=== PATIENT | male | born 1985 | race Caucasian/White ===

== ENCOUNTER 2018-01-01 13:55 | Emergency (ER) | payer OTHER ==
[2018-01-01] MEDS ORDERED: KETOROLAC 30 MG/ML INJ ONE (14:47)
[2018-01-01] MEDS ORDERED: DIAZEPAM 10 MG/2 ML INJ SYRINGE ONE (14:49)
--- NOTE | 2018-01-01 15:39 | ER ---
Nurse's Notes [facility] Name: Parish Brand Age: 32 yrs Sex: Male : 1985 Arrival Date: 01/01/2018 Time: 14:00 Bed 15 Private MD: None, None Diagnosis: Low back pain Presentation: 01/01 14:14 Presenting complaint: Patient states: Sudden onset low back pain when bending over last aj night to take out trash. Patient reports numbness that radiates down right leg. Transition of care: patient was not received from another setting of care. Onset of symptoms was January 01, 2018. Risk Assessment: Do you want to hurt yourself or someone else? Patient reports no desire to harm self or others. 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 Care prior to arrival: None. 14:14 Method Of Arrival: Wheelchair aj 14:14 Acuity: EVETTE 4 aj 14:18 Initial Sepsis Screen: Does the patient meet any 2 criteria? No. Patient's initial tw2 sepsis screen is negative. Does the patient have a suspected source of infection? No. Patient's initial sepsis screen is negative. Triage Assessment: 14:15 General: Appears in no apparent distress. uncomfortable, Behavior is calm, cooperative, aj appropriate for age. Pain: Complains of pain in low back area, coccyx, right lower back, right gluteus sherita and right gluteal fold Pain currently is 7 out of 10 on a pain scale. at worst was 10 out of 10 on a pain scale. Neuro: Level of Consciousness is awake, alert, obeys commands, Oriented to person, place, time, situation, Appropriate for age. Respiratory: Airway is patent Respiratory effort is even, unlabored, Respiratory pattern is regular, symmetrical. Musculoskeletal: Circulation, motion, and sensation intact. Range of motion: intact in all extremities, Reports pain in low back area, right lower back, right gluteus sherita and right gluteal fold. Historical: - Allergies: 14:15 No Known Allergies; aj - Home Meds: 14:15 None [Active]; aj - PMHx: 14:15 None; aj - PSHx: 14:15 None; aj - Immunization history:: Adult Immunizations up to date. - Social history:: Smoking status: Patient/guardian denies using tobacco, Patient/guardian denies using alcohol, street drugs, The patient lives with family. - Ebola Screening: : Patient denies travel to an Ebola-affected area in the 21 days before illness onset. - Family history:: not pertinent. Screenin:17 Abuse screen: Denies threats or abuse. Nutritional screening: No deficits noted. tw2 Tuberculosis screening: No symptoms or risk factors identified. Fall Risk None identified. Assessment: 14:19 General: Appears in no apparent distress. well groomed, Behavior is calm, cooperative, tw2 appropriate for age. Pain: Complains of pain in low back area and right gluteal fold and right gluteus sherita and right lower back. Neuro: Level of Consciousness is awake, alert, obeys commands, Oriented to person, place, time, situation. Cardiovascular: Denies chest pain, shortness of breath, Capillary refill < 3 seconds Patient's skin is warm and dry. Respiratory: Airway is patent Respiratory effort is even, unlabored, Respiratory pattern is regular, symmetrical. GI: No signs and/or symptoms were reported involving the gastrointestinal system. Abdomen is flat. : No signs and/or symptoms were reported regarding the genitourinary system. EENT: No signs and/or symptoms were reported regarding the EENT system. Derm: Skin is intact, is healthy with good turgor, Skin temperature is warm. Musculoskeletal: Reports pain in low back area and pain radiates down right leg. 15:20 Reassessment: Patient appears in no apparent distress at this time. No changes from tw2 previously documented assessment. Patient and/or family updated on plan of care and expected duration. Pain level reassessed. Patient is alert, oriented x 3, equal unlabored respirations, skin warm/dry/pink. 16:04 Reassessment: Patient appears in no apparent distress at this time. No changes from tw2 previously documented assessment. Patient and/or family updated on plan of care and expected duration. Pain level reassessed. Patient is alert, oriented x 3, equal unlabored respirations, skin warm/dry/pink. Patient states symptoms have not improved. 16:26 Reassessment: Patient appears in no apparent distress at this time. No changes from tw2 previously documented assessment. Patient and/or family updated on plan of care and expected duration. Pain level reassessed. Patient is alert, oriented x 3, equal unlabored respirations, skin warm/dry/pink. Vital Signs: 14:15 BP 122 / 84; Pulse 70; Resp 19; Temp 97.5; Pulse Ox 97% on R/A; Weight 99.79 kg; Height aj 6 ft. 1 in. (185.42 cm); 16:03 BP 118 / 72; Pulse 62; Resp 17; Pulse Ox 96% on R/A; tw2 14:15 Body Mass Index 29.03 (99.79 kg, 185.42 cm) ED Course: 14:00 Patient arrived in ED. mr 14:01 None, None is Private Physician. mr 14:15 Triage completed. aj 14:15 Arm band placed on left wrist. Patient placed in an exam room. aj 14:17 Afua Ingram RN is Primary Nurse. tw2 14:18 Adult w/ patient. pt remains in w/c at bedside at this time. Pulse ox on. NIBP on. tw2 14:27 Aneudy Garsia MD is Attending Physician. ma2 16:04 Awaiting: medication check after administration prior to discharge. tw2 16:26 No provider procedures requiring assistance completed. Patient admitted, IV remains in tw2 place. Administered Medications: 14:58 Drug: TORadol 60 mg Route: IM; Site: right deltoid; tw2 16:03 Follow up: Response: No adverse reaction; Pain is unchanged, physician notified tw2 15:02 Drug: Valium 10 mg Route: IM; Site: left deltoid; tw2 16:03 Follow up: Response: No adverse reaction tw2 16:00 Drug: MethylPREDNISolone Sodium Succinate 125 mg Route: IM; Site: right gluteus; tw2 16:25 Follow up: Response: No adverse reaction tw2 16:02 Drug: morphine 4 mg Route: IM; Site: left gluteus; tw2 16:26 Follow up: Response: No adverse reaction tw2 Outcome: 15:38 Discharge ordered by . ma2 16:27 Discharged to home ambulatory, with friend. tw2 16:27 Condition: stable 16:27 Discharge instructions given to patient, friend, Instructed on discharge instructions, follow up and referral plans. no drinking with medication, no driving heavy equipment, medication usage, Demonstrated understanding of instructions, follow-up care, medications, Prescriptions given X 3. 16:27 Patient left the ED. tw2 Signatures: Elenita Staley RN RN Kate Brooks mr Afua Ingram, BAUTISTA RN tw2 Aneudy Garsia MD MD ma2
--- NOTE | 2018-01-01 15:39 | EDPHYS ---
Physician Documentation [facility] Name: Parish Brand Age: 32 yrs Sex: Male : 1985 Arrival Date: 01/01/2018 Time: 14:00 Bed 15 Private MD: None, None ED Physician Aneudy Garsia HPI: 01/01 15:23 This 32 yrs old Male presents to ER via Wheelchair with complaints of Back ma2 Pain. 15:23 The patient presents with pain that is acute. ma2 15:35 The symptoms are located in the low back. Onset: The symptoms/episode began/occurred ma2 gradually, 1 day(s) ago. The pain does not radiate. Associated signs and symptoms: Pertinent negatives: abdominal pain, chest pain, dysuria, incontinence, nausea, numbness, tingling, urinary retention, vomiting, weakness. The problem was sustained when lifting boxes. Severity of symptoms: At their worst the symptoms were severe, in the emergency department the symptoms are unchanged. The patient has not experienced similar symptoms in the past. Historical: - Allergies: 14:15 No Known Allergies; aj - Home Meds: 14:15 None [Active]; aj - PMHx: 14:15 None; aj - PSHx: 14:15 None; aj - Immunization history:: Adult Immunizations up to date. - Social history:: Smoking status: Patient/guardian denies using tobacco, Patient/guardian denies using alcohol, street drugs, The patient lives with family. - Ebola Screening: : Patient denies travel to an Ebola-affected area in the 21 days before illness onset. - Family history:: not pertinent. ROS: 15:35 MS/extremity: Positive for pain. ma2 15:35 All other systems are negative. Exam: 15:35 Constitutional: This is a well developed, well nourished patient who is awake, alert, ma2 and in no acute distress. Head/Face: Normocephalic, atraumatic. Chest/axilla: Normal chest wall appearance and motion. Nontender with no deformity. No lesions are appreciated. Cardiovascular: Regular rate and rhythm with a normal S1 and S2. No gallops, murmurs, or rubs. Normal PMI, no JVD. No pulse deficits. Respiratory: Lungs have equal breath sounds bilaterally, clear to auscultation and percussion. No rales, rhonchi or wheezes noted. No increased work of breathing, no retractions or nasal flaring. 15:35 Back: pain, that is severe, of the right mid back and right low back, ROM is decreased, normal spinal alignment noted, muscle spasm, is appreciated in the right mid back and right low back, Straight leg raises: Vital Signs: 14:15 BP 122 / 84; Pulse 70; Resp 19; Temp 97.5; Pulse Ox 97% on R/A; Weight 99.79 kg; Height aj 6 ft. 1 in. (185.42 cm); 16:03 BP 118 / 72; Pulse 62; Resp 17; Pulse Ox 96% on R/A; tw2 14:15 Body Mass Index 29.03 (99.79 kg, 185.42 cm) aj MDM: 14:28 Patient medically screened. ma2 15:35 Differential diagnosis: Osteoarthritis Scoliosis sprain, disc prolaps. Data reviewed: health system vital signs, nurses notes. Counseling: I had a detailed discussion with the patient and/or guardian regarding: the historical points, exam findings, and any diagnostic results supporting the discharge/admit diagnosis, the presence of at least one elevated blood pressure reading (>120/80) during this emergency department visit, the need for outpatient follow up. Response to treatment: the patient's symptoms have markedly improved after treatment. Administered Medications: 14:58 Drug: TORadol 60 mg Route: IM; Site: right deltoid; tw2 16:03 Follow up: Response: No adverse reaction; Pain is unchanged, physician notified tw2 15:02 Drug: Valium 10 mg Route: IM; Site: left deltoid; tw2 16:03 Follow up: Response: No adverse reaction tw2 16:00 Drug: MethylPREDNISolone Sodium Succinate 125 mg Route: IM; Site: right gluteus; tw2 16:25 Follow up: Response: No adverse reaction tw2 16:02 Drug: morphine 4 mg Route: IM; Site: left gluteus; tw2 16:26 Follow up: Response: No adverse reaction tw2 Disposition: 01/01/18 15:38 Discharged to Home. Impression: Low back pain. - Condition is Stable. - Discharge Instructions: Back Pain, Adult. - Prescriptions for Prednisone 20 mg Oral Tablet - take 3 tablets by ORAL route once daily for 4 days; 15 tablet. Tylenol- Codeine #3 300-30 mg Oral Tablet - take 2 tablet by ORAL route every 6 hours As needed; 30 tablet. Cyclobenzaprine 10 mg Oral Tablet - take 1 tablet by ORAL route every 8 hours As needed; 30 tablet. - Work release form, Medication Reconciliation Form, Thank You Letter, Antibiotic Education, Prescription Opioid Use form. - Follow up: Private Physician; When: Tomorrow; Reason: Continuance of care. - Problem is new. - Symptoms have improved. Signatures: Elenita Staley, RN RN Tho Trejo, CURATOR HORTICULTURAL MUSEUM CURATOR HORTICULTURAL MUSEUM Afua Roca RN RN tw2 Aneudy Garsia MD MD ma2 Corrections: (The following items were deleted from the chart) 16:27 15:38 01/01/2018 15:38 Discharged to Home. Impression: Low back pain. Condition is tw2 Stable. Forms are Medication Reconciliation Form, Thank You Letter, Antibiotic Education, Prescription Opioid Use. Follow up: Private Physician; When: Tomorrow; Reason: Continuance of care. Problem is new. Symptoms have improved. ma2
[2018-01-01] MEDS ORDERED: METHYLPREDNISOLONE 125 MG INJ ONE (15:52)
[2018-01-01] MEDS ORDERED: MORPHINE 4 MG/ML SYR ONE (15:53)
== END 2018-01-01 16:27 | disposition home or self-care (01) ==
LOC: ER 13:55
DX: M54.5 Low back pain (principal)
CPT/HCPCS: 96372; 99283; J2930; J3360